=== PATIENT | male | born 1970 | race Caucasian/White ===

== ENCOUNTER 2016-12-04 16:51 | Emergency (ER) | payer OTHER ==
[~2016-12-04] VITALS: Ht 185.4 cm; Wt 86.2 kg
[2016-12-04 17:11] VITALS: BP 126/81
[2016-12-04] MEDS ORDERED: FLUORESCEIN SODIUM OPHTH 1 EA STRIP OP ONE (17:30)
[2016-12-04] MEDS ORDERED: TETRAcaine 5 ML BOTTLE EACHEYE ONE (17:30)
[2016-12-04] MEDS ORDERED: TETRACAINE HCL/PF 0.5% UD 2 ML BOTTLE ONE (17:51)
[2016-12-04] MEDS ORDERED: FLUORESCEIN SODIUM OPHTH 1 EA STRIP ONE (17:51)
== END 2016-12-04 18:52 | disposition home or self-care (01) ==
LOC: ER 16:52
DX: M25.552 Pain in left hip (principal); T47.5X1A Poisoning by digestants, accidental (unintentional), initial encounter; Y92.9 Unspecified place or not applicable
CPT/HCPCS: 73503; 99284; A4606; Z7610; 73510-TC